=== PATIENT | male | born 1985 | race Caucasian/White ===

== ENCOUNTER 2019-12-19 15:23 | Emergency (ER) | payer OTHER ==
[2019-12-19 15:38] VITALS: BP 146/73; PULSE 80
--- NOTE | 2019-12-19 16:16 | CR ---
[id number] RAD/RAD Chest PA or AP 1V EXAM: RAD Chest PA or AP 1V INDICATION: CHEST PAIN. COMPARISON: 2014. DISCUSSION: Cardiomediastinal silhouette is normal in size and contour. No infiltrate, effusion, pneumothorax, or edema. IMPRESSION: Negative examination of the chest. Weston Shah MD 12/19/19 [id number] Thank you for allowing us to participate in the care of your patient.
--- NOTE | 2019-12-19 16:30 | EDM.PDOC ---
ED HPI GENERAL MEDICAL PROBLEM - General Chief Complaint: General Stated Complaint: anxiety attack? Time Seen by Provider: 12/19/19 15:55 Source of Information: Reports: Patient History Limitations: Reports: No Limitations - History of Present Illness INITIAL COMMENTS - FREE TEXT/NARRATIVE: Patient's a 34-year-old gentleman who presents to the emergency department this afternoon via private vehicle with a complaint of chest pain. Patient states that the discomfort began about 5 a.m. this morning while he was at work. It continued throughout the day and he decided to present to the emergency department. Patient describes discomfort as midsternal and achy. Patient states symptoms began about 9 days ago and has been intermittent since. Patient admits to starting testosterone [id number] medication at the same time that the discomfort started. Patient does also have a long history of anxiety. However, he is not on any medication currently. Symptoms have since subsided. Patient denies fever, out of area travel, cough, nausea, vomiting, diarrhea, abdominal pain, shortness of breath, or concern for covid exposure. Onset: Gradual Duration: Day(s): Location: Reports: Chest Quality: Reports: Ache Severity: Mild Improves with: Reports: Other (Spontaneously) Worsens with: Reports: None Associated Symptoms: Reports: Chest Pain. Denies: Cough, cough w sputum, Diaphoresis, Fever/Chills, Nausea/Vomiting, Shortness of Breath, Syncope - Related Data Allergies Allergy/AdvReac Type Severity Reaction Status Date / Time No Known Drug Allergies Allergy Other Verified 12/19/19 15:37 Home Meds: Home Meds Cholecalciferol (Vitamin D3) [Vitamin D] 10,000 unit PO WEEKLY 09/25/18 [History] Multivitamin [Multivitamins] 1 cap PO DAILY 12/19/19 [History] Past Medical History Gastrointestinal History: Reports: None Psychiatric History: Reports: Anxiety - Infectious Disease History Infectious Disease History: Reports: Chicken Pox - Past Surgical History GI Surgical History: Reports: Appendectomy Social & Family History - Tobacco Use Smoking Status *Q: Never Smoker - Caffeine Use Caffeine Use: Reports: Soda Other Caffeine Use: 7 up - Alcohol Use Days Per Week of Alcohol Use: 2 Number of Drinks Per Day: 12 Total Drinks Per Week: 24 - Recreational Drug Use Recreational Drug Use: Yes Recreational Drug Type: Reports: Marijuana/Hashish Recreational Drug Use Frequency: Rarely ED ROS GENERAL - Review of Systems Review Of Systems: Comprehensive ROS is negative, except as noted in HPI. Constitutional: Reports: No Symptoms HEENT: Reports: No Symptoms Respiratory: Reports: No Symptoms Cardiovascular: Reports: Chest Pain Endocrine: Reports: No Symptoms GI/Abdominal: Reports: No Symptoms : Reports: No Symptoms Musculoskeletal: Reports: No Symptoms Skin: Reports: No Symptoms Neurological: Reports: No Symptoms Psychiatric: Reports: Anxiety Hematologic/Lymphatic: Reports: No Symptoms Immunologic: Reports: No Symptoms ED EXAM, GENERAL - Physical Exam Exam: See Below Exam Limited By: No Limitations General Appearance: Alert, WD/WN, No Apparent Distress Nose: Normal Inspection, Normal Mucosa, No Blood Throat/Mouth: Normal Inspection, Normal Oropharynx, No Airway Compromise Head: Atraumatic, Normocephalic Neck: Normal Inspection Respiratory/Chest: No Respiratory Distress, Lungs Clear, Normal Breath Sounds, No Accessory Muscle Use, Chest Non-Tender Cardiovascular: Regular Rate, Rhythm, No Murmur, No Rub GI/Abdominal: Normal Bowel Sounds, Soft, Non-Tender, No Mass Back Exam: Normal Inspection Extremities: Normal Inspection, No Pedal Edema Neurological: Alert, Oriented, Normal Cognition Psychiatric: Normal Affect, Normal Mood Skin Exam: Warm, Dry, Intact, Normal Color, No Rash Lymphatic: No Adenopathy EKG INTERPRETATION EKG Date: 12/19/19 Time: 15:30 Rhythm: NSR Rate (Beats/Min): 80 Glady: Normal P-Wave: Present QRS: Normal ST-T: Normal QT: Normal Comparison: NA - No Prior EKG Course - Vital Signs Last Recorded V/S: Last Vital Signs Temp 97.6 F 12/19/19 15:33 Pulse 80 12/19/19 15:33 Resp 18 12/19/19 15:33 BP 146/73 H 12/19/19 15:33 Pulse Ox 98 12/19/19 15:33 - Orders/Labs/Meds Labs: Laboratory Tests 12/19/19 12/19/19 Range/Units 16:00 16:00 WBC 6.88 (5.00-10.00) 10^3/uL RBC 5.45 (4.50-6.00) 10^6/uL Hgb 15.7 (13.0-17.0) g/dL Hct 46.0 (40.0-52.0) % MCV 84.4 (82.0-92.0) fL MCH 28.8 (27.0-31.0) pg MCHC 34.1 (32.0-36.0) g/dL RDW 11.6 (11.5-14.5) % Plt Count 209 (150-400) 10^3/uL MPV 9.9 (7.4-10.4) fL Immature Gran % (Auto) 0.1 (0.0-5.0) % Neut % (Auto) 65.2 (50.0-70.0) % Lymph % (Auto) 24.1 (20.0-40.0) % Garvin % (Auto) 8.7 H (2.0-8.0) % Eos % (Auto) 1.5 (1.0-3.0) % Baso % (Auto) 0.4 (0.0-1.0) % Neut # (Auto) 4.48 (2.50-7.00) 10^3/uL Lymph # (Auto) 1.66 (1.00-4.00) 10^3/uL Garvin # (Auto) 0.60 (0.10-0.80) 10^3/uL Eos # (Auto) 0.10 (0.10-0.30) 10^3/uL Baso # (Auto) 0.03 (0.00-0.10) 10^3/uL Immature Gran # (Auto) 0.01 (0.00-0.50) 10^3/uL Sodium 141 (136-145) mmol/L Potassium 4.0 (3.3-5.3) mmol/L Chloride 106 (98-115) mmol/L Carbon Dioxide 27.1 (21.0-32.0) mmol/L Anion Gap 11.9 (5-15) mmol/L BUN 15 (6-25) mg/dL Creatinine 0.95 (0.51-1.17) mg/dL Est Cr Clr Drug Dosing 117.99 mL/min Estimated GFR (MDRD) > 60 mL/min Glucose 94 (75 - 99) mg/dL Calcium 8.9 (8.7-10.3) mg/dL Total Bilirubin 0.7 (0.2-1.0) mg/dL AST 18 (15-37) U/L ALT 26 (12-78) U/L Alkaline Phosphatase 62 (46-116) IU/L Troponin I 0.05 (0.00-0.070) ng/mL Total Protein 7.4 (6.4-8.2) g/dL Albumin 4.12 (3.00-4.80) g/dL - Radiology Interpretation Free Text/Narrative:: Chest x-ray shows no acute cardiopulmonary process - Re-Assessments/Exams Free Text/Narrative Re-Assessment/Exam: 12/19/19 17:10 Patient afebrile, vital signs stable, no chest discomfort while in the ER. Patient states he feels much better. Patient will follow-up with PCP and return to the ER if symptoms continue Departure - Departure Time of Disposition: 17:10 Disposition: Home, Self-Care 01 Condition: Good Clinical Impression: Anxiety - Discharge Information Instructions: Living With Anxiety, Panic Attack, [id number] Referrals: Teresa Hoang PA-C [Primary Care Provider] - Forms: ED Department Discharge Additional Instructions: Follow-up at clinic next week. Return to emergency department sooner if symptoms continue or worsen. Sepsis Event Note (ED) - Evaluation Sepsis Screening Result: No Definite Risk - Focused Exam Vital Signs: Vital Signs Temp Pulse Resp BP Pulse Ox 12/19/19 15:33 97.6 F 80 18 146/73 H 98 - Assessment/Plan Assessment:: Anxiety Plan: Follow-up with PCP
[2019-12-19 16:40] LABS: ANION GAP 11.9 mmol/L (5-15); CHLORIDE,CL 106 mmol/L (98-115); SODIUM,NA 141 mmol/L (136-145)
== END 2019-12-19 17:25 | disposition home or self-care (01) ==
LOC: KA.ED 15:23
DX: F41.9 Anxiety disorder, unspecified (principal)
CPT/HCPCS: 36415; 71045; 80053; 84484; 85025; 93005; 99284; 99285-25

== ENCOUNTER 2023-11-01 19:14 | Emergency (ER) | payer OTHER, BC ==
[2023-11-01] MEDS ORDERED: Sodium Chloride 0.9% 10 ML Syringe FLUSH PRN (19:34)
[2023-11-01 20:08] LABS: BASOPHILS ABSOLUTE AUTO 0.03 10^3/uL (0.00-0.10); BASOPHILS PERCENT AUTO 0.4 % (0.0-1.0); EOSINOPHILS ABSOLUTE AUTO 0.09 10^3/uL (0.10-0.30); EOSINOPHILS PERCENT AUTO 1.2 % (1.0-3.0); HEMATOCRIT 50.2 % (40.0-52.0); HEMOGLOBIN 17.3 g/dL (13.0-17.0); IMMATURE GRAN ABSOLUTE AUTO 0.02 10^3/uL (0.00-0.50); IMMATURE GRAN PERCENT AUTO 0.3 % (0.0-5.0); LYMPHOCYTES ABSOLUTE AUTO 2.06 10^3/uL (1.00-4.00); LYMPHOCYTES PERCENT AUTO 27.2 % (20.0-40.0); MEAN CORPUSCULAR HEMOGLOBIN 29.1 pg (27.0-31.0); MEAN CORPUSCULAR HGB CONC 34.5 g/dL (32.0-36.0); MEAN CORPUSCULAR VOLUME 84.4 fL (82.0-92.0); MEAN PLATELET VOLUME 9.8 fL (7.4-10.4); MONOCYTES ABSOLUTE AUTO 0.54 10^3/uL (0.10-0.80); MONOCYTES PERCENT AUTO 7.1 % (2.0-8.0); NEUTROPHILS ABSOLUTE AUTO 4.83 10^3/uL (2.50-7.00); NEUTROPHILS PERCENT AUTO 63.8 % (50.0-70.0); PLATELET COUNT,PLT 211 10^3/uL (150-400); RED BLOOD CELL COUNT 5.95 10^6/uL (4.50-6.00); RED CELL DISTRIBUTION WIDTH 12.1 % (11.5-14.5); WHITE BLOOD CELL COUNT,WBC 7.57 10^3/uL (5.00-10.00)
[2023-11-01 20:26] LABS: ALANINE AMINOTRANSFERASE,ALT 22 U/L (14-63); ALBUMIN 3.85 g/dL (3.40-5.00); ALKALINE PHOSPHATASE 83 U/L (46-116); ANION GAP 15.7 mmol/L (5-15); ASPARTATE AMNIOTRANSFERASE,AST 12 U/L (15-37); BILIRUBIN TOTAL 0.4 mg/dL (0.2-1.0); BLOOD UREA NITROGEN,BUN 13 mg/dL (7-18); CARBON DIOXIDE,CO2 26.5 mmol/L (21.0-32.0); CHLORIDE,CL 103 mmol/L (98-107); CREATININE 0.99 mg/dL (0.51-1.17); GLUCOSE RANDOM 106 mg/dL (70-140); POTASSIUM,K 4.2 mmol/L (3.5-5.1); SODIUM,NA 141 mmol/L (136-145)
[2023-11-01 20:28] LABS: ESTIMATED GFR 99 mL/min (>=60)
[2023-11-01] MEDS: Sodium Chloride 0.9% 1,000 ML IV ONE (20:30)
[2023-11-01] MEDS: Sodium Chloride 0.9% 50 ML IV SCH (20:31)
[2023-11-01] MEDS: Iopamidol 755 Mg/ML 100 ML Bottle IV ONE (20:31)
[2023-11-01 21:10] LABS: APPEARANCE,URINE CLEAR (CLEAR); BILIRUBIN,URINE NEGATIVE (NEGATIVE); COLOR,URINE YELLOW (YELLOW); GLUCOSE,URINE NEGATIVE (NEGATIVE); KETONES,URINE NEGATIVE (NEGATIVE); LEUKOCYTE ESTERASE,URINE NEGATIVE (NEGATIVE); NITRITE,URINE NEGATIVE (NEGATIVE); OCCULT BLOOD,URINE NEGATIVE (NEGATIVE); PROTEIN,URINE NEGATIVE (NEGATIVE); UROBILINOGEN,URINE 0.2 E.U./dL (0.2-1.0)
[2023-11-01] MEDS: Tamsulosin 0.4 MG Cap.ER PO ONE (21:45)
[2023-11-01 23:59] VITALS: BP 128/82; PULSE 96
== END 2023-11-01 21:50 | disposition home or self-care (01) ==
LOC: KA.ED 19:14
DX: N20.0 Calculus of kidney (principal); Z90.49 Acquired absence of other specified parts of digestive tract; Z79.899 Other long term (current) drug therapy
CPT/HCPCS: 74177; 80053; 81003; 85025; 96360; 99284-25; A9270-GY; J3490; J7030; Q9967